=== PATIENT | male | born 1965 | race Caucasian/White ===

== ENCOUNTER 2017-01-20 00:48 | Emergency (ER) | payer MEDICAID ==
--- NOTE | 2017-01-20 01:26 | ED Physician Chart ---
Chief Complaint/HPI - Patient Information Date Seen:: 01/20/17 Time Seen:: 01:15 Chief Complaint:: right ankle pain History of Present Illness:: At 2300 this patient was jogging and inverted his right ankle. Patient denies chest pain, shortness of breath, headache, dizziness Allergies:: Allergies Allergy/AdvReac Type Severity Reaction Status Date / Time No Known Allergies Allergy Verified 01/20/17 00:55 Vitals:: Vital Signs - 8 hr 01/20/17 01/20/17 00:50 01:15 Temp 98.4 F HR 75 RR 18 BP 135/78 187/128 O2 Sat % 97 Historian:: Patient Review:: Nurse's Note Reviewed Review of Systems - Review of Systems General/Constitutional: No fever, No chills Skin: No skin lesions Head: No headache Eyes: No loss of vision ENT: No earache Neck: No neck pain Cardio Vascular: No chest pain, No palpitations Pulmonary: No SOB GI: No nausea G/U: No dysuria Musculoskeletal: Bone or joint pain Psychiatric: No prior psych history, No depression Hematopoietic: No bruising Allergic/Immuno: No urticaria Neurological: No syncope Past Medical History - Past Medical History Past Medical History: HTN (patient states he stopped taking his atenolol 50 mg a day and losartan 25 mg a day about 4 months ago) Family History: HTN Social History: Smoker, No Alcohol Surgical History: None Psychiatricy History: None Family Medical History - Family Member Mother History Unknown: Yes Physical Exam - Physical Examination General/Constitutional: Well-developed, well-nourished, Alert, No distress Head: Atraumatic Eyes: Lids, conjuctiva normal, PERRL Skin: Nl inspection, No rash, No skin lesions, No ecchymosis, Well hydrated, No lymphadenopathy ENMT: External ears, nose nl, TM canals nl, Nasal exam nl, Lips, teeth, gums nl , Oropharynx nl, Tonsils nl Neck: No nuchal rigidity Respiratory: Nl effort/Exclusion, Clear to Auscultation, No Wheeze/Rhonchi/Rales Cardio Vascular: RRR, No murmur, gallop, rubs, NL S1 S2 GI: No tenderness/rebounding/guarding, No organomegaly, Nondistended, No mass/ bruits : No CVA tenderness Other Extremities comments:: Right ankle: 3 out of 4 swelling; there is tenderness over the anterior talofibular, posterior talofibular and calcaneal fibular ligaments Neuro/Psych: Alert/oriented Misc: Normal back, No paraspinal tenderness Labs/Radiology/EKG Results - Radiology Results Results: Right ankle: old chip fracture medial malleolus; no acute fracture ED Septic Shock - . Is Septic Shock (SBP<90, OR Lactate>4 mmol\L) present?: No - <6hrs of presentation: Vital Signs: Vital Signs - 8 hr 01/20/17 01/20/17 00:50 01:15 Temp 98.4 F HR 75 RR 18 BP 135/78 187/128 O2 Sat % 97 Reassessment (Disposition) - Reassessment Reassessment:: urged patient to be complaint with his high blood pressure medication Reassessment Condition:: Unchanged - Diagnosis Diagnosis:: sprain right ankle - Aftercare/Follow up Instructions Medication Prescribed:: Atenolol 50 mg #30 Sig 1 QD; Losartan 25 mg #30 Sig 1 QD - Patient Disposition Discharge/Transfer:: Home Condition at Disposition:: Stable, Unchanged
--- NOTE | 2017-01-20 10:19 | Diagnostic Imaging Report ---
Right ankle 3 views Indication: Trauma Comparison: none Findings: There is soft tissue swelling surrounding the ankle greatest laterally. There is an ossicle inferior to the medial malleolus measuring 5 mm. Small calcifications are also seen along the lateral hindfoot region. No dislocation. There is mild ossification of the tibiofibular syndesmosis. Mild degenerative changes are noted. Small distal Achilles spur and small plantar calcaneal spurs are noted. Impression: Small calcifications seen along the lateral hindfoot. Small avulsion injuries of indeterminate age cannot be excluded. Please correlate with clinical findings. Soft tissue swelling of the ankle is also noted, greatest laterally. Ossicle seen inferior to the medial malleolus which may have been due to old ligamentous injury. Mild degenerative changes Small calcaneal spurring. In the setting of trauma, if clinical symptoms persist and there is continued concern for an occult fracture, follow up exams in 5-7 days is suggested.
== END 2017-01-20 01:50 | disposition home or self-care (01) ==
LOC: ER 00:48
DX: S93.401A Sprain of unspecified ligament of right ankle, initial encounter (principal); I10 Essential (primary) hypertension; F17.200 Nicotine dependence, unspecified, uncomplicated; X58.XXXA Exposure to other specified factors, initial encounter; Y93.89 Activity, other specified; Y92.89 Other specified places as the place of occurrence of the external cause; Y99.8 Other external cause status
CPT/HCPCS: 73610-RT-TC; Z7502